=== PATIENT | male | born 1960 | race Caucasian/White ===

== ENCOUNTER → 2020-03-28 12:04 | Outpatient (BNVA) | payer OTHER, SELFPAY | PROVIDERS: Family Provider Family Medicine; PCP Family Medicine; Visit Provider Family Medicine | DX: M79.674 Pain in right toe(s) (principal); I10 Essential (primary) hypertension; M25.511 Pain in right shoulder; G89.29 Other chronic pain | CPT/HCPCS: 84550 ==

== ENCOUNTER → 2020-06-20 11:27 | Outpatient (BNVA) | payer OTHER, SELFPAY | PROVIDERS: Family Provider Family Medicine; PCP Family Medicine; Visit Provider Family Medicine | DX: G89.29 Other chronic pain (principal); M25.511 Pain in right shoulder; Z23 Encounter for immunization | CPT/HCPCS: 73030 ==

== ENCOUNTER 2020-07-10 12:23 | Outpatient (RCR) | payer OTHER, SELFPAY | END 2020-08-09 23:59 | disposition home or self-care (01) | LOC: SPT 12:23 | PROVIDERS: PCP Family Medicine; Referring Provider Family Medicine; Visit Provider Family Medicine | DX: M25.511 Pain in right shoulder (principal); G89.29 Other chronic pain | CPT/HCPCS: 97110; 97161 ==

== ENCOUNTER → 2020-07-19 11:49 | Outpatient (BNVA) | payer OTHER, SELFPAY | PROVIDERS: PCP Family Medicine; Visit Provider Family Medicine | DX: I10 Essential (primary) hypertension (principal) | CPT/HCPCS: 80053; 80061; 82043; 85025 ==

== ENCOUNTER → 2020-08-21 15:35 | Outpatient (BNVA) | payer OTHER, SELFPAY | PROVIDERS: PCP Family Medicine; Visit Provider Family Medicine | DX: E78.5 Hyperlipidemia, unspecified (principal) | CPT/HCPCS: 80053 ==

== ENCOUNTER 2020-12-24 08:14 | Outpatient (CLI) | payer OTHER, SELFPAY ==
--- NOTE | 2020-12-24 08:22 | NMCV_ITS ---
NM stuart perf SPECT r/s* [id number] Bhargav Holm Age: 60 Gender: M : 1960 Exam Date: 12/24/2020 09:28 Ordering Phys: Jane Reed DO Technologist: THOMAS Verdugo Exam Location: [facility] Indications: LIGHTHEADEDNESS STRESS TEST Please see separate stress test report in [facility] for full findings IMAGE PROTOCOL Rest/Stress 1 Exercise Day Radiopharmaceutical Dose (mCi) Administration Site Administered by Rest: Tc-99m 10.9 IV THOMAS Mirza Sestamibi Stress:Tc-99m 32.7 IV THOMAS Verdugo Sestamibaljeet Rest: 24-Dec-2020 60 Discovery 630 Stress: 24-Dec-2020 30 Discovery 630 Images obtained in supine and prone position. Radiopharmaceutical was injected at 85 % maximum heart rate. SPECT RESULTS Technical Quality: Excellent Raw Data Analysis: Normal Image Corrections: No attenuation or motion correction applied Summed Stress Score: 0 Summed Rest Score: 5 Summed Difference Score: 0 PERFUSION FINDINGS Small to moderate area of decreased tracer uptake in the inferolateral region fusion with reverse redistribution FUNCTIONAL RESULTS (calculated via Gated SPECT) Stress Image LV EF (%): 63 Stress EDV (mL):130 TID: 0.88 Stress ESV (mL):48 FUNCTIONAL FINDINGS: Segmental wall motion analysis revealing no gross wall motion normalities #1. IMPRESSIONS 1. Myocardial perfusion imaging revealing small to moderate area of reversible distribution in the inferolateral region, suggestive of collateral circulation in this region versus attenuation artifact 2. Normal LV ejection fraction of 63%. 3. LV wall motion analysis revealing no gross wall motion normalities. 4. Slightly elevated LV volume. No significant coronary ischemia, based on the above findings Dr Angelo Simon MD [facility] (Electronically Signed) Final Date: 24 Dec 2020 13:06 S
[2020-12-24 09:16] VITALS: BMI 32.5
--- NOTE | 2020-12-24 10:15 | ECG_ITS ---
[facility] Test Date: 2020-12-24 Pat Name: Bhargav Holm Department: Room: Gender: Male Health Service Coordinator: : 1960 Requested By: Jane Reed Order Number: [id number] Shaver MD: Angelo Simon M.D. Interpretive Statements NAME OF STUDY: EXERCISE SESTAMIBI STRESS TEST INDICATION: Lightheadedness, PROCEDURE: The baseline electrocardiogram showed [normal sinus rhythm with some nonspecific ST-T changes and incomplete right bundle branch block pattern. At the baseline, the patient's blood pressure was 151/95 mm Hg with a heart rate of 76. The patient exercised for 7 minutes and 15 seconds on a standard Ishan protocol. Patient attained a maximum heart rate of 140 beats per minute( 86 % of the maximum predicted heart rate) with a blood pressure at the peak exercise of 189/101 mm Hg. The EKG at the peak exercise revealed [address] depressions in lead V4 and V5 . Patient was complaining of shortness of breath with exertion. Patient did not have any chest pain or any significant arrhythmis with the exercise. Sestamibi was injected 1 minute prior to the peak exercise During the recovery phase, there were no new changes. The blood pressure went up to 228/119 soon after the recovery Blood pressure at the end of the recovery phase was 176/111 mm Hg with a heart rate of 84 per minute. CONCLUSION: 1. Abnormal EKG response to treadmill exercise, suggestive of ischemia in the distribution of the left anterior descending artery. 2. No exercise-induced chest pain or cardiac arrhythmia. Hypertensive response to exercise 3. Fair exercise tolerance, attained a maximum of 10.2 METs 4. Sestamibi/Sestamibi perfusion results pending; see separate report. Electronically Signed On 01-10-2021 17:23:41 CDT by Angelo Simon M.D. [email or web address]
[2020-12-24 10:27] VITALS: BP 176/99; PULSE 83
== END 2020-12-24 08:15 | disposition home or self-care (01) ==
PROVIDERS: PCP Family Medicine; Visit Provider Family Medicine
DX: R42 Dizziness and giddiness (principal); R63.1 Polydipsia
CPT/HCPCS: 78452; 80053; 81003; 83036; 83935; 84443; 93017; A9500

== ENCOUNTER 2021-01-10 08:35 | Outpatient (CLI) | payer OTHER, SELFPAY ==
--- NOTE | 2021-01-10 08:45 | US_ITS ---
WS: [id number] ULTRASOUND RENAL TECHNIQUE: Ultrasound examination of both kidneys. CLINICAL INFORMATION: EXCESSIVE THIRST AND HYPONATREMIA COMPARISON: None. FINDINGS: Several bilateral simple renal cysts largest in the right measures 2.5 x 3.0 x 3.8 cm. Larg est in the left measures 1.9 x 2.2 x 2.1 CM. Approximately 4-5 renal cysts in total. RIGHT: Right kidney is normal in size and appearance. Echogenicity: Normal. Cortical thickness: 1.8 cm; Normal. Hydronephrosis: None. Perinephric fluid: None. Right kidney measures: 12.8 cm x 8.5 cm x 4.7 cm. LEFT: Left kidney is normal in size and appearance. Echogenicity: Normal. Cortical thickness: 2.0 cm; Normal. Hydronephrosis: None. Perinephric fluid: None. Left kidney measures: 12.1 cm x 6.5 cm x 4.7 cm. Normal visualized aorta.Prevoid bladder volume 555 cc. Post void bladder volume 70 cc. Bladder otherw ise appears normal. Prostate measures 3.6 x 5.0 x 3.8 cm US/US renal BI with PV bladder IMPRESSION: 1. No hydronephrosis in either kidney. 2. Multiple bilateral simple renal cysts. 3. Prevoid bladder volume 555 cc. Post void bladder volume 70 cc. 4. Prostate measures 3.6 x 5.0 x 3.8 cm
== END 2021-01-10 08:36 | disposition home or self-care (01) ==
LOC: RAD 08:37
PROVIDERS: PCP Family Medicine; Visit Provider Family Medicine
DX: R63.1 Polydipsia (principal); E87.1 Hypo-osmolality and hyponatremia; Q61.02 Congenital multiple renal cysts
CPT/HCPCS: 76770; 76857

== ENCOUNTER → 2021-03-06 11:22 | Outpatient (BNVA) | payer OTHER, SELFPAY | PROVIDERS: PCP Family Medicine; Referring Provider Internal Medicine Cardiovascular Disease; Visit Provider Internal Medicine Cardiovascular Disease | DX: Z01.818 Encounter for other preprocedural examination (principal); R94.39 Abnormal result of other cardiovascular function study; Z20.822 Contact with and (suspected) exposure to COVID-19 | CPT/HCPCS: 80048; 85025; 85610; 87635 ==

== ENCOUNTER 2021-03-12 08:47 | Day surgery (SDC) | payer OTHER, SELFPAY ==
[2021-03-11 11:38] LABS: Arterial Blood Gas Hematocrit 38.1 % (42-52); Blood Gas Operator Identificat AMH; Blood Gas Sample Type Venous; Carboxyhemoglobin 1.2 %THgb (0.4-20.1); HGB O2 Sat 57.8 % (95-100); Methemoglobin 0.8 % (0.4-1.5); Total Hemoglobin 12.4 g/dL (14-18)
[2021-03-11 11:40] LABS: Alveolar-Arterial Oxygen Gradi 8.2 mmHg (5-10); Arterial Blood Gas Hematocrit 27.4 % (42-52); Blood Gas Operator Identificat AMH; Blood Gas Sample Type Venous; Carboxyhemoglobin 1.2 %THgb (0.4-20.1); HGB O2 Sat 57.7 % (95-100); Methemoglobin 0.8 % (0.4-1.5); Total Hemoglobin 8.9 g/dL (14-18)
[2021-03-11 11:42] LABS: Arterial Blood Gas Hematocrit 22.9 % (42-52); Blood Gas Operator Identificat AMH; Blood Gas Sample Type Venous; Carboxyhemoglobin 1.3 %THgb (0.4-20.1); HGB O2 Sat 58.3 % (95-100); Methemoglobin 0.8 % (0.4-1.5); Total Hemoglobin 7.5 g/dL (14-18)
[2021-03-11 11:44] LABS: Alveolar-Arterial Oxygen Gradi 5.4 mmHg (5-10); Arterial Blood Gas Hematocrit 36.9 % (42-52); Blood Gas Operator Identificat AMH; Blood Gas Sample Site Not specified; Blood Gas Sample Type Arterial; Carboxyhemoglobin 1.2 %THgb (0.4-20.1); Methemoglobin 0.6 % (0.4-1.5)
[2021-03-11 14:29] LABS: Oxygen Device RA
[2021-03-12] VITALS (9 sets, daily range): BP systolic 114–129; BP diastolic 72–98; PULSE 51–63; RESP 6–23; TEMP 36.9; O2SAT 96–98; BMI 32.5
--- NOTE | 2021-03-12 09:00 | XACV_ITS ---
Ht: 183 cm Wt: 109 kg BSA: 2.38 m2 Gender: Male : 1960 Any Known Allergies: No known allergies Exam Priority: Routine Indication(s): - Abnormal nuclear perfusion test Procedure(s): Procedure Description: Diagnostic procedure Procedure Description: Left Heart Catheterization Procedure Description: Left ventriculography Procedure Description: Coronary Angiography Diagnostic Cath Status: Elective Diagnostic Findings * Left Main has no disease. * Circumflex has no disease. * Right Coronary Artery has no disease. * Proximal Left Anterior Descending: severe 90% stenosis, ADRIÁN: 3 flow. * Ramus: severe 90% stenosis, ADRIÁN: 3 flow. * Coronary angiography shows right dominance. Conclusions 1. There is severe coronary artery disease with one vessel disease. 2. All smiley are normal. 3. Normal left ventricular systolic function. Ejection fraction of 65%. 4. Normal left ventricle function no significant gradient across the aortic valve noted. 5. Patient underwent worsening of chest pain along with shortness of breath suspicious for unstable angina and abnormal stress test. He was noted to have a highly calcified proximal long 90 but LAD and eccentric significant 90% ramus intermedius. Left circumflex has proximal 40% eccentric lesion which may not be significant. RCA is a dominant vessel without any significant disease. Since patient has highly calcified proximal long LAD lesion along with moderate size and caliber ramus intermedius which also noted to have proximal highly calcified eccentric significant stenotic lesion it was recommended that patient should be assessed for CABG. Patient was offered CABG at [facility] but he would like to go to [facility].. Recommendations * 1-Usual post-cath care2-Statin with LDL goal of 70 mg/dl, aspirin 81 mg p.o. daily for life long 3-CT surgery consults for CABG4-Optimal medical management for MI5-Follow up with Dr. Billings in four weeks and establish care with primary care physician. Diagnostic RX Recommendation: CABG Ventriculography Ejection Fraction: 65.0 % Left Ventriculography Findings: * Normal left ventricle function no significant gradient across the aortic valve noted. Pressures Phase:Rest AO : 124 / 30 ( 30 ) @ 9:52:00 AM 117 / 87 ( 103 ) @ 9:52:00 AM 119 / 21 ( 50 ) @ 10:05:00 AM LV : 128 / 0 / 18 @ 10:03:00 AM 125 / 0 / 17 @ 10:03:00 AM 186 / 27 / 120 @ 10:04:00 AM 116 / 3 / 18 @ 10:04:00 AM Clinical Evaluation EBL: 5mL-10mL Procedural Details Procedure Consent Obtained. Admit Source: Out Patient. Current Diagnosis : Chest Pain. Pre-Procedure Time Out. Identified patient by full name and date of as verbalized by the patient/guarantor. Does the consent match the physician's order: Yes. Accurate & Complete Informed Consent: Yes. Inpatient/Outpatient History & Physical on Chart: Yes. If H&P is completed, is and addenduem needed: No; If yes, is the addendum complete: N/A. Visualize and Verify Site with Patient/Guarantor: N/A. Relevant Radiology Images available: N/A. Pre-op teaching completed and patient verbalized understanding. The risks, benefits, and alternatives of sedation and/or procedure were discussed by physician. The patient agrees to continue. Procedure started. [facility] Clinical Fraility Score: 3: Managing Well. 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 Chest Pain Symptom Assessment: Typical Angina Symptoms. Cardiovascular Instability: No. Correct patient, site and procedure confirmed by cath team. Current diagnosis: Chest Pain, Shortness of Breath, Abnormal Stress Test. PERRLA. Strong, equal hand svp research & ebusiness operations bilaterally. Lungs clear x 5 lobes. IV Site on Arrival: 20 gauge in the left anticubital. IV Fluids: 0.9% NaCl at KVO. 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 Pre Procedural Pulses: bilateral radial was 3+. Pre Procedural Pulses: bilateral dorsalis pedis was 3+. Pre Procedural Pulses: bilateral posterior tibial was 3+. Oxygen started at 3liters/min via nasal canula. right groin was prepped with chloroprep then draped in the usual sterile fashion. right radial was prepped with chloroprep then draped in the usual sterile fashion. Physician notified. Baseline sample Acquired. HR: 56 BPM. Baseline sample Acquired. HR: 55 BPM. Baseline sample Acquired. HR: 55 BPM. Physician arrived. Physician scrubbed in. Immediate Pre-Procedure Time Out. Correct Patient: Yes; Correct Procedure: Yes; Correct Site: Yes; Correct Patient Position: Yes; Correct Supplies: Yes; Dried Flammable Prep: Yes; Blood Products Available: N/A;. Lidocaine 1% infiltrated to the right radial. Arterial access obtained. A 5 [place] TIG catheter in over wire. Catheter seated in the LCS. Multiple views taken of left coronary artery. Catheter redirected to the RCA. Multiple views taken of right coronary artery. Side port of sheath attached to Normal Saline flush at KVO to maintain patency. Physician review of films. Catheter removed over the exchange wire. Equipment: 6F - Radial. Cardiac Cath Pack. ACIST Manifold Kit Model BT 2000. Heparinized Saline (2 units/mL), 1000 mL bag. A 5 [place] Angled Pig catheter in over wire. EDP Sample taken: LV 128/-1,18; HR: 56 BPM; SpO2: 99%. LV gram performed in GU @ 10 mL/second for a total of 30 mL. Patient EF: Normal. EDP Sample taken: LV 186/27,120; HR: 60 BPM; SpO2: 99%. EDP Sample taken: LV 116/3,18; HR: 59 BPM; SpO2: 99%. Pullback taken: LV Off; AO Off; Mean: , Peak to Peak: , SEP: ; HR: 59 BPM; SpO2: 99%. Physician scrubbed out. A TR Band was successful obtaining hemostatsis at the Right Radial artery insertion site. TR band placed. Hemostasis obtained. Post Procedure: Pulses reassessed and unchanged. PERRLA. Strong, equal hand svp research & ebusiness operations bilaterally. No VTE prophylaxis required. Medication's Wasted: Lidocaine 1% = 14 ml. Medication's Wasted: Nitro = 49.8 mg. Medication's Wasted: Heparin = 1000 units. Total IV fluids: 50 mL. Fluoro: 3:06. Contrast type used: Omnipaque 300 mgI/mL, 500 mL bottle. [id number] ml. Post-op diagnosis: 2 vessel obstuctive CAD. Complications: None. Estimated blood loss: 5mL-10mL. Family updated by MD. Procedure completed. Patient transferred by wheelchair to CPRU. Vital chart was stopped. Vital chart was stopped. Access Site Site: Right Radial artery Sheath Size: 5 Fr Hemostasis Method: TR Band Hemostasis Success: Successful Procedure Medications Start: 10:38 AM Stop: 10:38 AM Medication: Versed Amount: 1 mg Route: I.V. Start: 10:38 AM Stop: 10:38 AM Medication: Fentanyl Amount: 50 mcg Route: I.V. Start: 10:41 AM Stop: 10:41 AM Medication: Versed Amount: 1 mg Route: I.V. Start: 10:41 AM Stop: 10:41 AM Medication: Fentanyl Amount: 50 mcg Route: I.V. Start: 10:45 AM Stop: 10:45 AM Medication: Nitrogylcerin Amount: 200 mcg Route: I.A. Start: 10:47 AM Stop: 10:47 AM Medication: Heparin Amount: 5000 units Route: I.V. I, the attending physician, have reviewed and verified all procedure medications. Yes, all medications given per verbal order History/Risk Factors Hypertension: No Dyslipidemia: No Peripheral Arterial Disease (PAD): No Myocardial Infarction (AL): No Obesity: No Renal Disease: No Tobacco Use: Former Prior Interventions PCI: No CABG: No Valve Surgery: No Report Signatures Finalized by Winter Billings MD on 03/14/2021 07:42 PM
--- NOTE | 2021-03-12 10:11 | W.PM.OPSUD ---
Surgery/Procedure H&P Update DATE OF PROCEDURE: March 12, 2021 DATE H&P PERFORMED: 02/21/21 H&P UPDATE INFORMATION: I have reviewed H&P completed within last 30 days, I have examined patient prior to procedure and No changes to prior documentation PREOP DIAGNOSIS: Abnormal stress test, chest pain, shortness of breath PLANNED PROCEDURE: Operation Date: 03/12/21 10:00 Proposed Procedures p Left Cardiac Catheterization 68368 R94.39(Left) - Winter Billings MD PATIENT REASSESSED PRIOR TO SEDATION, WITH NO CHANGE NOTED: Yes PHYSICAL EXAM: alert, oriented x 3 and clear to auscultation bilaterally AIRWAY EVAL/ANESTHESIA PLAN: ASA II, Risks, benefits & alternatives of sedation and/or procedure discussed and Patient agrees to continue as planned
--- NOTE | 2021-03-12 11:00 | PC.NURSE ---
received pt from a diagnostic only [facility] from woods laborer. pt complains of no pain. tr band in place on right wrist with palpable distal pulse. no bruising or bleeding noted. pt alert and oriented x3. pt educated on restrictions for right wrist. pt placed on vital machine to be monitored per protocol.
== END 2021-03-12 13:51 | disposition home or self-care (01) ==
PROVIDERS: PCP Family Medicine; Visit Provider Internal Medicine Cardiovascular Disease
DX: R94.39 Abnormal result of other cardiovascular function study (principal); I25.10 Atherosclerotic heart disease of native coronary artery without angina pectoris; G47.33 Obstructive sleep apnea (adult) (pediatric); Z87.891 Personal history of nicotine dependence
CPT/HCPCS: 36415; 82810; 93452; C1769; C1887; C1894; J1644; J2250; J3010; J3490; J7030; Q0163; Q9967

== ENCOUNTER 2021-03-22 07:42 | Outpatient (CLI) | payer OTHER, SELFPAY ==
--- NOTE | 2021-03-22 08:00 | USCV_ITS ---
Bhargav Holm Age: 60 Gender: M : 1960 Exam Date: 03/22/2021 07:57 Ordering Phys: Winter Billings MD ([email or web address]) Technologist: Shelia Treadwell Exam Location: [facility] Indication: abnormal result other CV function BP: 1 / HR: 65 Rhythm: Sinus Technical Quality: Adequate MEASUREMENTS (Male / Female) Normal Values 2D ECHO LV Diastolic Diameter PLAX 5.1 cm 4.2 - 5.9 / 3.9 - 5.3 cm LV Systolic Diameter PLAX 3.4 cm IVS Diastolic Thickness 1.1 cm 0.6 - 1.0 / 0.6 - 0.9 cm IVS Systolic Thickness 1.7 cm LVPW Diastolic Thickness 0.8 cm 0.6 - 1.0 / 0.6 - 0.9 cm LVPW Systolic Thickness 1.8 cm LVOT Diameter 2.2 cm LV Ejection Fraction 2D Teich 63.3 % LV Ejection Fraction MOD 2C 78.8 % LV Ejection Fraction 2C AL 81.0 % LA Diameter 4.9 cm LA Width 3.3 cm LA Height 5.6 cm RA Width 1.9 cm RA Height 5.4 cm Aorta at Sinotubular Diameter 4.0 cm DOPPLER AV Peak Velocity 135.0 cm/s LVOT Peak Velocity 109.0 cm/s AV Area Cont Eq vti 3.2 cm squared AV Area Cont Eq pk 3.2 cm squared MV Peak Velocity 81.0 cm/s MV Area PHT 3.5 cm squared Mitral E to A Ratio 0.9 MV E' Velocity 36.0 cm/s Mitral E to MV E' Ratio 8.5 Mitral E to LV E' Lateral Ratio 7.4 Mitral E to LV E' Septal Ratio 9.9 TR Peak Velocity 220.3 cm/s TR Peak Gradient 19.4 mmHg TR Mean Velocity 166.9 cm/s TR Mean Gradient 12.0 mmHg TR Velocity Time Integral 61.9 cm Right Atrial Pressure 3.0 mmHg Pulmonary Artery Systolic Pressu 22.4 mmHg PV Peak Velocity 86.0 cm/s RV Acceleration Time 0.1 s RV Ejection Time 0.3 s RV AcT/ET 0.4 FINDINGS Left Ventricle Normal left ventricular cavity size. Normal left ventricular systolic function. No regional wall motion abnormalities. Left ventricular ejection fraction is estimated at 60 %. Grade I/IV diastolic dysfunction (abnormal relaxation filling pattern), normal to mildly elevated filling pressures. Right Ventricle The right ventricle is normal in size and function. Right Atrium The right atrium is normal in size. Left Atrium The left atrium is normal in size. Mitral Valve Mildly thickened mitral valve. No mitral valve stenosis. Mild mitral valve regurgitation. Aortic Valve Moderate aortic valve calcification. No aortic valve stenosis. Mild aortic valve regurgitation. Tricuspid Valve Trace to mild tricuspid valve regurgitation. Pulmonic Valve Structurally normal pulmonic valve without significant stenosis. There is no pulmonic regurgitation. Pericardium Normal pericardium without effusion. Aorta Normal ascending aorta dimension. CONCLUSIONS 1-Normal left ventricular cavity size. Normal left ventricular systolic function. No regional wall motion abnormalities. Left ventricular ejection fraction is estimated at 60 %. Grade I/IV diastolic dysfunction (abnormal relaxation filling pattern), normal to mildly elevated filling pressures. 2-Moderate aortic valve calcification. No aortic valve stenosis. Mild aortic valve regurgitation. 3-Mildly thickened mitral valve. No mitral valve stenosis. Mild mitral valve regurgitation. 4-Trace to mild tricuspid valve regurgitation. 5-There is no pericardial effusion. 6-Pulmonary artery systolic pressure is within normal limits. 7-Right atrial pressure is around 5 mm of mercury. 8-There are no prior echocardiogram studies to compare. Winter Billings MD (Electronically Signed) Final Date: 22 March 2021 18:59 S
== END 2021-03-22 07:43 | disposition home or self-care (01) ==
PROVIDERS: PCP Family Medicine; Visit Provider Internal Medicine Cardiovascular Disease
DX: R94.39 Abnormal result of other cardiovascular function study (principal); R06.02 Shortness of breath; R07.9 Chest pain, unspecified; I08.3 Combined rheumatic disorders of mitral, aortic and tricuspid valves
CPT/HCPCS: 93306

== ENCOUNTER 2021-04-01 10:31 | Outpatient (CLI) | payer OTHER, SELFPAY ==
[2021-04-03 15:56] LABS: Coronavirus Test Green County Not Detected
== END 2021-04-01 10:32 | disposition home or self-care (01) ==
PROVIDERS: PCP Family Medicine; Visit Provider Family Medicine
DX: Z20.828 Contact with and (suspected) exposure to other viral communicable diseases (principal); Z01.818 Encounter for other preprocedural examination
CPT/HCPCS: 87635

== ENCOUNTER 2021-04-19 09:12 | Outpatient (RCR) | payer OTHER, SELFPAY | END 2021-05-09 23:59 | disposition home or self-care (01) | LOC: CR 09:12 | PROVIDERS: PCP Family Medicine; Referring Provider Internal Medicine Cardiovascular Disease; Visit Provider Internal Medicine Cardiovascular Disease | DX: Z95.1 Presence of aortocoronary bypass graft (principal) | CPT/HCPCS: 93798 ==

== ENCOUNTER → 2021-05-06 08:13 | Outpatient (BNVA) | payer OTHER, SELFPAY | PROVIDERS: PCP Family Medicine; Visit Provider Family Medicine | DX: E78.5 Hyperlipidemia, unspecified (principal) | CPT/HCPCS: 80053; 80061 ==

== ENCOUNTER 2021-05-10 08:14 | Outpatient (RCR) | payer OTHER, SELFPAY | END 2021-06-09 23:59 | disposition home or self-care (01) | LOC: CR 08:14 | PROVIDERS: PCP Family Medicine; Referring Provider Internal Medicine Cardiovascular Disease; Visit Provider Internal Medicine Cardiovascular Disease | DX: Z95.1 Presence of aortocoronary bypass graft (principal) | CPT/HCPCS: 93798 ==

== ENCOUNTER 2021-06-11 11:33 | Outpatient (RCR) | payer OTHER, SELFPAY | END 2021-07-09 23:59 | disposition home or self-care (01) | LOC: CR 11:33 | PROVIDERS: PCP Family Medicine; Referring Provider Internal Medicine Cardiovascular Disease; Visit Provider Internal Medicine Cardiovascular Disease | DX: Z95.1 Presence of aortocoronary bypass graft (principal) | CPT/HCPCS: 93798 ==

== ENCOUNTER 2021-06-28 10:09 | Outpatient (CLI) | payer OTHER, SELFPAY ==
--- NOTE | 2021-06-28 10:25 | XR_ITS ---
WS: [id number] Exam: XR knee RT 1-2V [id number] Date/Time of Exam: 06/28/2021 10:25 AM Reason For Exam: chronic Rt knee pain No fracture or dislocation noted. Articular relationships are intact. No joint effusion. XR/XR knee RT 1-2V [id number] Impression: Normal right knee Kellgren-Juanjose Classification: 0
== END 2021-06-28 10:10 | disposition home or self-care (01) ==
PROVIDERS: PCP Family Medicine; Visit Provider Family Medicine Adult Medicine
DX: M25.561 Pain in right knee (principal); G89.29 Other chronic pain
CPT/HCPCS: 73560

== ENCOUNTER 2021-07-10 09:42 | Outpatient (RCR) | payer OTHER, SELFPAY | END 2021-08-09 23:59 | disposition home or self-care (01) | LOC: CR 09:42 | PROVIDERS: PCP Family Medicine; Referring Provider Internal Medicine Cardiovascular Disease; Visit Provider Internal Medicine Cardiovascular Disease | DX: Z95.1 Presence of aortocoronary bypass graft (principal) | CPT/HCPCS: 93798 ==

== ENCOUNTER → 2021-07-12 15:00 | Outpatient (BNVA) | payer OTHER, SELFPAY | PROVIDERS: PCP Family Medicine; Visit Provider Family Medicine | DX: R35.1 Nocturia (principal) | CPT/HCPCS: 84153 ==

== ENCOUNTER 2021-07-23 14:33 | Outpatient (RCR) | payer OTHER, SELFPAY | END 2021-08-09 23:59 | disposition home or self-care (01) | LOC: SPT 14:33 | PROVIDERS: PCP Family Medicine; Referring Provider Family Medicine; Visit Provider Family Medicine | DX: M25.561 Pain in right knee (principal) | CPT/HCPCS: 97110; 97162 ==

== ENCOUNTER 2021-08-10 06:00 | Outpatient (RCR) | payer OTHER, SELFPAY | END 2021-09-09 23:59 | disposition home or self-care (01) | LOC: SPT 06:00 | PROVIDERS: PCP Family Medicine; Referring Provider Family Medicine; Visit Provider Family Medicine | DX: M25.561 Pain in right knee (principal) | CPT/HCPCS: 97110 ==

== ENCOUNTER 2021-09-10 06:00 | Outpatient (RCR) | payer OTHER, SELFPAY | END 2021-10-07 23:59 | disposition home or self-care (01) | LOC: SPT 06:00 | PROVIDERS: PCP Family Medicine; Referring Provider Family Medicine; Visit Provider Family Medicine | DX: M25.561 Pain in right knee (principal) | CPT/HCPCS: 97110 ==

== ENCOUNTER → 2021-09-27 11:44 | Outpatient (BNVA) | payer OTHER, SELFPAY | PROVIDERS: PCP Family Medicine; Referring Provider Family Medicine; Visit Provider Surgery | DX: R13.10 Dysphagia, unspecified (principal); I25.10 Atherosclerotic heart disease of native coronary artery without angina pectoris; Z20.822 Contact with and (suspected) exposure to COVID-19 | CPT/HCPCS: 87635 ==

== ENCOUNTER 2021-10-04 06:29 | Day surgery (SDC) | payer OTHER, SELFPAY ==
[2021-10-02 12:18] VITALS: BMI 33.9
--- NOTE | 2021-10-04 07:05 | P.ANESASSM_ITS ---
Pre-Anesthetic Assessment Height/Weight: Height 1.83 m Weight 113.398 kg Preop Diagnosis: upper gi symptoms Operation Date: 10/04/21 08:00 Proposed Procedures p EGD Dilation W/ Balloon 48392/r13.10(Not Applicable) - Prince Sylvester MD Familial anesthetic complications: None Was Beta Timoteo taken within 24 hours: Yes Was Clonidine taken within 24 hours: N/A Last intake: > 8 hrs Social No alcohol and No tobacco Exam alert, oriented x 3, clear to auscultation bilaterally and regular rate & rhythm Airway Mallampati: Class III Dentition: full Pulmonary Sleep Apnea CV/HEM Coronary Artery Disease (cabg in march) and Hypertension None reported Hepatic None reported GI Gastroesophageal Reflux Disease Metabolic None reported Musc/skel None reported Neuropsych None reported Anesthetic Plan ASA status: 3 Anesthesia: MAC Risk of > 500 ml blood loss (7ml/kg in children): No Medications/Allergies Home Medications Medication Instructions Recorded Confirmed Last Taken Type aspirin 81 mg tablet,delayed 81 mg PO DAILY #90 tab 02/21/21 10/02/21 10/02/21 Rx release (Adult Low Dose Aspirin) famotidine 20 mg tablet 20 mg PO DAILY 02/21/21 10/02/21 03/12/21 06:30 History multivitamin 1 tab PO DAILY 02/21/21 10/02/21 03/12/21 06:30 History atorvastatin 80 mg tablet 80 mg PO DAILY 90 Days #90 tab 05/07/21 10/02/21 Unknown Rx metoprolol tartrate 25 mg tablet 25 mg PO BID tab 06/25/21 10/02/21 Unknown History tramadol 50 mg tablet 50 mg PO Q8H PRN 15 Days #30 tab 06/28/21 10/02/21 Unknown Rx clopidogrel 75 mg tablet 75 mg PO DAILY #90 tab 07/25/21 10/02/21 09/29/21 Rx tamsulosin 0.4 mg capsule 0.4 mg PO BID 90 Days #180 cap 09/17/21 10/02/21 Unknown Rx Allergies Allergy/AdvReac Type Severity Reaction Status Date / Time No Known Allergies Allergy Verified 09/27/21 11:09 [facility] Anesthesia Medical History BPH (benign prostatic hyperplasia) CAD (coronary artery disease) Dyslipidemia GERD (gastroesophageal reflux disease) Hypertension PUSHPA (obstructive sleep apnea) Surgical History History of ankle surgery History of appendectomy History of detached retina repair History of tympanostomy tube placement Status post aorto-coronary artery bypass graft Status post colonoscopy Family History Mother Stroke Brother Stroke Myocardial infarction Family/Other Hypertension Father Myocardial infarction Social History Smoking and tobacco status: never smoked Quit status (tobacco): has quit using tobacco Alcohol intake: never Data Anesthesia Cardiac Studies: Echocardiogram 03/22/21 Sestamibi Stress Test (Cardiology) 12/24/20
[2021-10-04 07:21] VITALS: BP 135/91; PULSE 66; RESP 20; TEMP 36.4; O2SAT 96
[2021-10-04] MEDS: sodium chloride 0.9% 1,000 ML 30 ML IV (07:30)
--- NOTE | 2021-10-04 07:44 | P.HP_ITS ---
Same Day Surgery H&P Indication for Procedure/HPI DATE OF PROCEDURE: October 04, 2021 CHIEF COMPLAINT/INDICATIONFOR SURGICAL PROCEDURE: dysphagia PREOP DIAGNOSIS: upper gi symptoms PLANNED PROCEDURE: Operation Date: 10/04/21 08:00 Proposed Procedures p EGD Dilation W/ Balloon 33767/r13.10(Not Applicable) - Prince Sylvester MD Medications/Allergies* Home Medications Medication Instructions Recorded Confirmed Type famotidine 20 mg tablet 20 mg PO DAILY 02/21/21 10/02/21 History multivitamin 1 tab PO DAILY 02/21/21 10/02/21 History metoprolol tartrate 25 mg tablet 25 mg PO BID tab 06/25/21 10/02/21 History Allergies/Adverse Reactions Allergy/AdvReac Type Severity Reaction Status Date / Time No Known Allergies Allergy Verified 09/27/21 11:09 Current Medications: Generic Name Dose Route Start Last Admin Trade Name Freq PRN Reason Stop Dose Admin Sodium Chloride 1,000 mls @ 30 mls/hr 10/04/21 07:00 10/04/21 07:30 Sodium Chloride 0.9% IV 10/05/21 06:59 30 mls/hr .Q24H ASH Administration Pertinent History/Comorbid Conditions* Medical History (Updated 09/27/21 @ 11:16 by Prince Sylvester MD) BPH (benign prostatic hyperplasia) CAD (coronary artery disease) Dyslipidemia GERD (gastroesophageal reflux disease) Hypertension PUSHPA (obstructive sleep apnea) Surgical History (Updated 09/27/21 @ 11:16 by Prince Sylvester MD) History of ankle surgery History of appendectomy History of detached retina repair History of tympanostomy tube placement Status post aorto-coronary artery bypass graft Status post colonoscopy Family History (Updated 02/21/21 @ 13:50 by Sherri Godinez RN) Myocardial infarction Brother Father Hypertension Family/Other Stroke Mother Brother Social History Smoking and tobacco status: never smoked Quit status (tobacco): has quit using tobacco Alcohol intake: never Pertinent Exam Findings alert, oriented x 3 and regular rate & rhythm Recommendations Surgery/Procedure today Coding Level of Care Code Acute Certified Family Mediator for Carmen Arnold
[2021-10-04 08:09] VITALS: BP 101/68; PULSE 62; RESP 16; TEMP 36.2; O2SAT 94
[2021-10-04 08:19] VITALS: BP 97/65; PULSE 65; RESP 18; O2SAT 95
--- NOTE | 2021-10-04 12:43 | ANE.PACU2 ---
Inpatient post-anesthesia follow up: Airway intact: Yes Vital signs: Temperature 97.2 F Pulse Rate 65 Respiratory Rate 18 Blood Pressure 97/65 Pulse Oximetry 95 Oxygen Delivery Me thod Room Air Oxygen Flow Rate Fraction of Inspir ed Oxygen Hydration adequate: Yes Nausea and vomiting: No Pain level: 1 Mental status: Baseline
== END 2021-10-04 08:35 | disposition home or self-care (01) ==
PROVIDERS: PCP Family Medicine; Visit Provider Surgery
DX: R13.10 Dysphagia, unspecified (principal); K44.9 Diaphragmatic hernia without obstruction or gangrene; G47.30 Sleep apnea, unspecified; I25.10 Atherosclerotic heart disease of native coronary artery without angina pectoris; Z95.1 Presence of aortocoronary bypass graft; I10 Essential (primary) hypertension; K21.9 Gastro-esophageal reflux disease without esophagitis; Z79.82 Long term (current) use of aspirin; N40.0 Benign prostatic hyperplasia without lower urinary tract symptoms; E78.5 Hyperlipidemia, unspecified; G47.33 Obstructive sleep apnea (adult) (pediatric); Z82.49 Family history of ischemic heart disease and other diseases of the circulatory system; Z82.3 Family history of stroke; Z87.891 Personal history of nicotine dependence
CPT/HCPCS: 43239; 88305; J7030

== ENCOUNTER → 2021-10-23 14:44 | Outpatient (BNVA) | payer OTHER, SELFPAY | PROVIDERS: PCP Family Medicine; Referring Provider Family Medicine; Visit Provider Specialist | DX: M25.561 Pain in right knee (principal); M17.12 Unilateral primary osteoarthritis, left knee | CPT/HCPCS: 73560; 73565 ==

== ENCOUNTER → 2022-01-16 08:24 | Outpatient (BNVA) | payer OTHER, SELFPAY | PROVIDERS: PCP Family Medicine; Visit Provider Family Medicine | DX: M25.561 Pain in right knee (principal); R13.10 Dysphagia, unspecified; I10 Essential (primary) hypertension; E78.5 Hyperlipidemia, unspecified; R21 Rash and other nonspecific skin eruption; R13.19 Other dysphagia | CPT/HCPCS: 80053; 80061; 82043; 85025 ==

== ENCOUNTER → 2022-07-17 08:18 | Outpatient (BNVA) | payer OTHER, SELFPAY | PROVIDERS: PCP Family Medicine; Visit Provider Family Medicine | DX: I10 Essential (primary) hypertension (principal); R13.10 Dysphagia, unspecified; E78.5 Hyperlipidemia, unspecified; R21 Rash and other nonspecific skin eruption | CPT/HCPCS: 80053 ==

== ENCOUNTER 2022-07-31 10:17 | Emergency (ER) | payer OTHER, SELFPAY ==
[2022-07-31 10:36] VITALS: BP 139/80; PULSE 72; RESP 18; TEMP 37.1; O2SAT 96; BMI 35.2
--- NOTE | 2022-07-31 10:46 | ED_ITS ---
HPI - General Adult General: Chief complaint: General Medical Stated complaint: pain in throat Time Seen by Provider: 07/31/22 10:30 Source: patient Mode of arrival: ambulatory History of Present Illness: 61-year-old male presents emergency room with complaint of sore throat difficulty swallowing. In the past he has had esophage al stricture and required dilation. Most recently they considered it but he had quite a bit of esophageal inflammation so they did not perform it at the time I was in September of this year. He is noticing now when he bends over he gets quite a bit of sensation radiating up into his chest that he cannot swallow that things are stuck but he is extends upright the symptoms go away almost immediately. He has not noticed any other things that exacerbate or relieve it he has not had any vomiting or diarrhea last bowel movement was normal no hematochezia melena hematemesis or coffee-ground emesis. Patient does have a history of coronary artery disease with a previous coronary artery bypass graft, he still is on Plavix. This is been getting progressively worse for the last couple of weeks. Onset (ago): week(s) Location: abdomen Severity: moderate Quality: aching Pain Consistency: intermittent Relieving factors: none Exacerbating factors: none Associated symptoms: Deny chest pain, cough, diaphoresis, decreased appetite, dyspnea, malaise, nausea, rash, seizures or vomiting Review of Systems Const: Denies: fever(s), chills, fatigue, malaise or diaphoresis ENMT: Denies: throat pain, ear or mastoid pain, nasal discharge or nasal congestion Card: Denies: chest pain Resp: Denies: dyspnea, productive cough or non-productive cough GI: Denies: abdominal pain, nausea, vomiting, hematemesis, coffee ground emesis, diarrhea, constipation, bloating, hematochezia or melena : Denies: flank pain, dysuria, urinary frequency or urinary urgency Skin/Breast: Denies: rash or pruritus PFSH ED PFSH: Medical History BPH (benign prostatic hyperplasia) CAD (coronary artery disease) Dyslipidemia GERD (gastroesophageal reflux disease) Hypertension PUSHPA (obstructive sleep apnea) Surgical History H/O esophagogastroduodenoscopy (10/04/21) Grade D esopahgitis with schatzki ring, hiatal hernia History of ankle surgery History of appendectomy History of detached retina repair History of tympanostomy tube placement Status post aorto-coronary artery bypass graft Status post colonoscopy Family History Mother Stroke Brother Stroke Myocardial infarction Family/Other Hypertension Father Myocardial infarction Social History Smoking and tobacco status: former smoker Quit status (tobacco): has quit using tobacco Alcohol intake: never Physical Exam Const: COMMON NORMALS: no acute distress GENERAL APPEARANCE: cooperative and comfortable ORIENTATION/CONSCIOUSNESS: Yes awake, Yes oriented to person, Yes oriented to place and Yes oriented to time HENMT: COMMON NORMALS: normocephalic, atraumatic and hearing grossly normal bilaterally HEAD & SCALP: normocephalic and atraumatic Lymph: LYMPHATIC: no lymphadenopathy noted and no lymphedema noted Resp: COMMON NORMALS: normal respiratory effort, No retractions, No use of accessory muscles and clear to auscultation bilaterally AUSCULTATION: clear to auscultation bilaterally Cardio: COMMON NORMALS: regular rate, regular rhythm and No murmurs present (Cardio) RATE: regular rate RHYTHM: regular rhythm GI: COMMON NORMALS: Soft to palpation and No hepatosplenomegaly present AUSCULTATION: Yes normoactive bowel sounds PALPATION: Yes Soft to palpation, No Tenderness to palpation present (GI), No Guarding due to palpation present (GI) and Yes No hepatosplenomegaly present Extremity: COMMON NORMALS: normal to inspection, capillary refill normal, no clubbing, cyanosis or edema, no calf tenderness and no pedal edema Neuro: SENSORIUM/ORIENTATION: Yes oriented to person, Yes oriented to place and Yes oriented to time Skin: COMMON NORMALS: no rashes or lesions noted GENERAL SKIN EXAM: no rashes or lesions noted Course Vital Signs: Vital signs: Vital Signs Temperature 98.7 F 07/31/22 10:36 Pulse Rate 72 07/31/22 10:36 Respiratory Rate 18 07/31/22 10:36 Blood Pressure 139/80 07/31/22 10:36 Pulse Oximetry 96 07/31/22 10:36 Oxygen Delivery Me thod 07/31/22 10:36 MDM - General Adult Medical Decision Making Patient's symptoms are entirely when he bends over. He is having severe reflux from compressing his stomach. We will double up his Protonix. If this does not improve things he is going to probably need to have another EGD. He is not really having signs of an obstruction in his esophagus at this point. Its noncardiac by its description in nature and is very reproducible. If is not seeing improvement follow-up with surgery for possible EGD. Medical Records I reviewed the patient's medical records. Lab Data I reviewed the patient's lab results. 07/31/22 11:00 07/31/22 11:00 Radiology Impressions Chest X-Ray 07/31/22 11:28 IMPRESSION: 1. No acute cardiopulmonary finding. Laboratory Results WBC 5.5 10^3/uL (4.0-10.0) 07/31/22 11:00 RBC 4.78 10^6/uL (4.1-5.3) 07/31/22 11:00 Hgb 15.1 g/dL (11.7-16.6) 07/31/22 11:00 Hct 43.2 % (42.0-52.0) 07/31/22 11:00 MCV 90.4 fl (80-94) 07/31/22 11:00 MCH 31.6 pg (28.0-34.0) 07/31/22 11:00 MCHC 35.0 g/dL (30.0-36.0) 07/31/22 11:00 RDW 12.3 % (12.1-15.1) 07/31/22 11:00 Plt Count 231 10^3/cmm (130-400) 07/31/22 11:00 MPV 8.8 fL (7.4-10.4) 07/31/22 11:00 Neut % (Auto) 52.4 % 07/31/22 11:00 Lymph % (Auto) 34.1 % 07/31/22 11:00 [place] % (Auto) 10.3 % 07/31/22 11:00 Eos % (Auto) 2.6 % 07/31/22 11:00 Baso % (Auto) 0.4 % 07/31/22 11:00 Neut # (Auto) 2.86 10^3/uL (1.8-7.7) 07/31/22 11:00 Lymph # (Auto) 1.9 10^3/uL (0.8-4.8) 07/31/22 11:00 [place] # (Auto) 0.6 10^3/uL (0.2-0.9) 07/31/22 11:00 Eos # (Auto) 0.1 10^3/uL (0.0-0.8) 07/31/22 11:00 Baso # (Auto) 0.0 10^3/uL (0.0-0.1) 07/31/22 11:00 Nucleated RBC % (auto) 0 % 07/31/22 11:00 Nucleated RBCs # 0.0 /100WBC 07/31/22 11:00 Sodium 131 mmol/L (136-145) L 07/31/22 11:00 Potassium 4.4 mmol/L (3.5-5.1) 07/31/22 11:00 Chloride 98 mmol/L (98-107) 07/31/22 11:00 Carbon Dioxide 22 mmol/L (22-29) 07/31/22 11:00 Anion Gap 15.4 (5-19) 07/31/22 11:00 BUN 13 mg/dL (8-23) 07/31/22 11:00 Creatinine 0.7 mg/dL (0.7-1.2) 07/31/22 11:00 GFR Calculation 115.0 mL/min (90-130) 07/31/22 11:00 Glucose 102 mg/dL (65-115) 07/31/22 11:00 Calculated Osmolality 272 mOsm/kg (285-295) L 07/31/22 11:00 Calcium 9.5 mg/dL (8.5-10.5) 07/31/22 11:00 Discharge Plan Discharge Patient Disposition: Home Clinical Impression: Esophagitis, reflux Condition: Stable Prescriptions: New Protonix 40 mg tablet,delayed release (DR/EC) 40 mg PO BID 14 Days Qty: 28 0RF Discontinued pantoprazole [Protonix] 40 mg tablet,delayed release (DR/EC) 40 mg PO DAILY 90 Days Qty: 90 1RF No Action multivitamin Tablet 1 tab PO DAILY aspirin [Adult Low Dose Aspirin] 81 mg tablet,delayed release (DR/EC) 81 mg PO DAILY Qty: 90 3RF metoprolol tartrate 25 mg tablet 25 mg PO BID Qty: 180 1RF fluocinonide 0.05 % cream 1 applic topical BID PRN (Reason: itching) Qty: 30 0RF tamsulosin 0.4 mg capsule 0.4 mg PO BID 90 Days Qty: 180 1RF atorvastatin 80 mg tablet 80 mg PO DAILY clopidogrel 75 mg tablet 75 mg PO DAILY Discharge Orders: Discharge ED (Routine); Ordered 07/31/22 Ordered By: Delroy Carter Referrals: Jane Reed DO [Primary Care Provider] - Discharge Diet: As Directed Discharge Activity: Resume usual activity Patient Instructions: Opioid Safety, Pain Management Activity Restrictions/Additional Instructions: You were seen today for severe reflux symptoms. Recommend you elevate head of the bed increase your Protonix to 40 twice daily avoid bending over. Dietary modifications as discussed, avoid caffeinated beverages carbonated beverages alcoholic beverages spicy foods and citrus foods. You should follow-up with surgery to consider repeat endoscopy labor relations manager will make an appointment for you. Coding Level of Care Code ED Woods Laborer for Chg Fwd Exam Comprehensive
--- NOTE | 2022-07-31 10:49 | ECG_ITS ---
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 Measurements Intervals Check Rate: 67 P: 46 GA: 177 QRS: 20 QRSD: 100 T: 128 QT: 400 QTc: 422 Interpretive Statements SINUS RHYTHM POSSIBLE LEFT ATRIAL ENLARGEMENT [-0.1mV P-WAVE IN V1/V2] INCOMPLETE RIGHT BUNDLE BRANCH BLOCK [90+ ms QRS DURATION, TERMINAL R IN V1/V2, 40+ ms S IN I/aVL/V4/V5/V6] ST DEVIATION AND MODERATE T-WAVE ABNORMALITY, CONSIDER LATERAL ISCHEMIA [-0.1+ mV T-WAVE IN I/aVL/V5/V6] No previous ECG available for comparison Electronically Signed On 07-31-2022 12:56:39 [employer] SERVICES DISPATCHER by Zion Boucher M.D. [id number]
[2022-07-31 11:07] LABS: Basophils % 0.4 %; Eosinophils # 0.1 10^3/uL (0.0-0.8); Eosinophils % 2.6 %; Hematocrit 43.2 % (42.0-52.0); Hemoglobin 15.1 g/dL (11.7-16.6); Lymphocytes # 1.9 10^3/uL (0.8-4.8); Lymphocytes % 34.1 %; Mean Corpuscular Hemoglobin 31.6 pg (28.0-34.0); Mean Corpuscular Volume 90.4 fl (80-94); Mean Platelet Volume 8.8 fL (7.4-10.4); Monocytes # 0.6 10^3/uL (0.2-0.9); Monocytes % 10.3 %; Neutrophils # 2.86 10^3/uL (1.8-7.7); Neutrophils % 52.4 %; Nucleated Red Blood Cells % 0 %; Platelet Count 231 10^3/cmm (130-400); Red Blood Count 4.78 10^6/uL (4.1-5.3); Red Cell Distribution Width 12.3 % (12.1-15.1); White Blood Count 5.5 10^3/uL (4.0-10.0)
[2022-07-31 11:27] LABS: Anion Gap 15.4 (5-19); Blood Urea Nitrogen 13 mg/dL (8-23); Calcium 9.5 mg/dL (8.5-10.5); Carbon Dioxide 22 mmol/L (22-29); Chloride 98 mmol/L (98-107); Creatinine Clr Calc Pharmacy 148.7835; Glucose 102 mg/dL (65-115); Osmolality Calculated 272 mOsm/kg (285-295); Potassium 4.4 mmol/L (3.5-5.1); Sodium 131 mmol/L (136-145)
--- NOTE | 2022-07-31 11:28 | XR_ITS ---
WS: [id number] Exam: XR chest 1V portable [id number] Date/Time of Exam: 07/31/2022 11:31 AM Reason For Exam: dyspnea/cough No priors. The lungs are clear and fully expanded. No pleural effusions. Heart size is top limits normal. The me diastinum is normal in contour. Signs of previous median sternotomy. Regional bony elements are intac t. XR/XR chest 1V portable [id number] IMPRESSION: 1. No acute cardiopulmonary finding.
== END 2022-07-31 12:37 | disposition home or self-care (01) ==
PROVIDERS: Emergency Provider Family Medicine; PCP Family Medicine
DX: K21.00 Gastro-esophageal reflux disease with esophagitis, without bleeding (principal); Z79.82 Long term (current) use of aspirin; Z79.02 Long term (current) use of antithrombotics/antiplatelets; Z87.891 Personal history of nicotine dependence; I25.10 Atherosclerotic heart disease of native coronary artery without angina pectoris; E78.5 Hyperlipidemia, unspecified; I10 Essential (primary) hypertension; Z95.1 Presence of aortocoronary bypass graft
CPT/HCPCS: 71045; 80048; 85025; 93005; 99285

== ENCOUNTER 2022-08-11 13:16 | Outpatient (RCR) | payer SELFPAY | END 2022-09-09 23:59 | disposition home or self-care (01) | LOC: CR 13:16 | PROVIDERS: PCP Family Medicine; Referring Provider Internal Medicine Cardiovascular Disease; Visit Provider Internal Medicine Cardiovascular Disease | DX: I25.10 Atherosclerotic heart disease of native coronary artery without angina pectoris (principal); Z95.1 Presence of aortocoronary bypass graft ==

== ENCOUNTER 2022-09-10 10:17 | Outpatient (RCR) | payer SELFPAY | END 2022-10-07 23:59 | disposition home or self-care (01) | LOC: CR 10:17 | PROVIDERS: PCP Family Medicine; Referring Provider Internal Medicine Cardiovascular Disease; Visit Provider Internal Medicine Cardiovascular Disease | DX: Z95.1 Presence of aortocoronary bypass graft (principal) ==

== ENCOUNTER 2022-10-08 09:26 | Outpatient (RCR) | payer SELFPAY | END 2022-11-07 23:59 | disposition home or self-care (01) | LOC: CR 09:26 | PROVIDERS: PCP Family Medicine; Referring Provider Internal Medicine Cardiovascular Disease; Visit Provider Internal Medicine Cardiovascular Disease | DX: Z95.1 Presence of aortocoronary bypass graft (principal) | CPT/HCPCS: 93798 ==

== ENCOUNTER 2022-11-10 11:13 | Outpatient (RCR) | payer SELFPAY | END 2022-12-07 23:59 | disposition home or self-care (01) | LOC: CR 11:13 | PROVIDERS: PCP Family Medicine; Referring Provider Internal Medicine Cardiovascular Disease; Visit Provider Internal Medicine Cardiovascular Disease | DX: Z95.1 Presence of aortocoronary bypass graft (principal) ==

== ENCOUNTER 2022-11-19 06:04 | Day surgery (SDC) | payer BC, SELFPAY ==
[2022-11-17 09:30] VITALS: BMI 35.2
[2022-11-19 06:26] VITALS: BP 136/81; PULSE 56; RESP 18; TEMP 35.9; O2SAT 97
[2022-11-19] MEDS: sodium chloride 0.9% 1,000 ML 30 ML IV (06:33)
--- NOTE | 2022-11-19 06:52 | ANES.PREANE2 ---
Pre-Anesthetic Assessment Height/Weight: Height 1.83 m Weight 117.934 kg Temp Pulse Resp BP Pulse Ox O2 Del Method 96.7 F L 56 L 18 136/81 97 Room Air 11/19/22 06:26 11/19/22 06:26 11/19/22 06:26 11/19/22 06:26 11/19/22 06:26 11/19/22 06:26 Preop Diagnosis: Dysphagia, GERD Operation Date: 11/19/22 07:30 Proposed Procedures p 49562 EGD with raven, [id number] Colonoscopy Z12.11,K21.9 , R13.10(Not Applicable) - DO rebecca Heller Colonoscopy(Not Applicable) - Andrei Hyman DO Familial anesthetic complications: none Was Beta Timoteo taken within 24 hours: Yes Last intake: Intake Last Liquid Date 11/18/22 Last Liquid Time 22:00 Last Solid Date 11/17/22 Last Solid Time 18:00 Social No alcohol and No tobacco Airway Submandibular: within normal limits Cervical ROM: within normal limits Mallampati: Class II Dentition: full Comments: Comments: jeffers. Pulmonary Sleep Apnea (CPAP compliant) CV/HEM Coronary Artery Disease and Hypertension CABG 2 vessel 03/2021. Cardiac rehab 3x week. 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 None reported Hepatic None reported GI Gastroesophageal Reflux Disease Dysphagia Metabolic Hyperlipidemia [facility] [place] [facility] None reported Neuropsych None reported Anesthetic Plan ASA status: 3 Anesthesia: MAC Medications/Allergies Home Medications Medication Instructions Recorded Confirmed Last Taken Type aspirin 81 mg tablet,delayed 81 mg PO DAILY #90 tabs 02/21/21 11/19/22 11/18/22 Rx release (Adult Low Dose Aspirin) multivitamin 1 tab PO DAILY 02/21/21 11/19/22 11/18/22 History fluocinonide 0.05 % topical cream 1 applic topical BID PRN itching 07/17/22 11/19/22 Unknown Rx #30 grams metoprolol tartrate 25 mg tablet 25 mg PO BID #180 tabs 07/17/22 11/19/22 11/19/22 Rx atorvastatin 80 mg tablet 80 mg PO DAILY 07/31/22 11/19/22 11/18/22 History clopidogrel 75 mg tablet 75 mg PO DAILY 07/31/22 11/19/22 11/17/22 06:00 History pantoprazole 40 mg tablet,delayed 40 mg PO BID #180 tabs 09/08/22 11/19/22 11/19/22 Rx release (Protonix) tamsulosin 0.4 mg capsule 0.4 mg PO BID 90 days #180 caps 10/03/22 11/19/22 11/19/22 Rx Allergies Allergy/AdvReac Type Severity Reaction Status Date / Time No Known Allergies Allergy Verified 11/19/22 06:24 Current Medications Generic Name Dose Route Start Last Admin Trade Name Lynnette PRN Reason Stop Dose Admin Sodium Chloride 1,000 mls @ 30 mls/hr 11/19/22 06:15 11/19/22 06:33 Sodium Chloride 0.9% IV 11/20/22 06:14 30 mls/hr .Q24H ASH Administration PFSH Anesthesia Medical History BPH (benign prostatic hyperplasia) CAD (coronary artery disease) Dyslipidemia GERD (gastroesophageal reflux disease) Hypertension PUSHPA (obstructive sleep apnea) Surgical History H/O esophagogastroduodenoscopy (10/04/21) Grade D esopahgitis with schatzki ring, hiatal hernia History of ankle surgery History of appendectomy History of detached retina repair History of tympanostomy tube placement Status post aorto-coronary artery bypass graft Status post colonoscopy Family History Mother Stroke Brother Stroke Myocardial infarction Family/Other Hypertension Father Myocardial infarction Social History Smoking and tobacco status: former smoker Quit status (tobacco): has quit using tobacco Alcohol intake: never Data Anesthesia Cardiac Studies: Echocardiogram 03/22/21 Sestamibi Stress Test (Cardiology) 12/24/20
--- NOTE | 2022-11-19 07:41 | PM.HP ---
Providers/Chief Complaint Primary Care Provider: Jane Reed DO Chief Complaint: Z12.11, K21.9, R13.10 History of Present Illness Bhargav Holm is a 62 year old male who is here for an EGD with possible balloon dilation and colonoscopy Medications/Allergies Home Medications Medication Instructions Recorded Confirmed Last Taken Type aspirin 81 mg tablet,delayed 81 mg PO DAILY #90 tabs 02/21/21 11/19/22 11/18/22 Rx release (Adult Low Dose Aspirin) multivitamin 1 tab PO DAILY 02/21/21 11/19/22 11/18/22 History fluocinonide 0.05 % topical cream 1 applic topical BID PRN itching 07/17/22 11/19/22 Unknown Rx #30 grams metoprolol tartrate 25 mg tablet 25 mg PO BID #180 tabs 07/17/22 11/19/22 11/19/22 Rx atorvastatin 80 mg tablet 80 mg PO DAILY 07/31/22 11/19/22 11/18/22 History clopidogrel 75 mg tablet 75 mg PO DAILY 07/31/22 11/19/22 11/17/22 06:00 History pantoprazole 40 mg tablet,delayed 40 mg PO BID #180 tabs 09/08/22 11/19/22 11/19/22 Rx release (Protonix) tamsulosin 0.4 mg capsule 0.4 mg PO BID 90 days #180 caps 10/03/22 11/19/22 11/19/22 Rx Allergies Allergy/AdvReac Type Severity Reaction Status Date / Time No Known Allergies Allergy Verified 11/19/22 06:24 PFSH Acute PFSH: Medical History BPH (benign prostatic hyperplasia) CAD (coronary artery disease) Dyslipidemia GERD (gastroesophageal reflux disease) Hypertension PUSHPA (obstructive sleep apnea) Surgical History H/O esophagogastroduodenoscopy (10/04/21) Grade D esopahgitis with schatzki ring, hiatal hernia History of ankle surgery History of appendectomy History of detached retina repair History of tympanostomy tube placement Status post aorto-coronary artery bypass graft Status post colonoscopy Family History Mother Stroke Brother Stroke Myocardial infarction Family/Other Hypertension Father Myocardial infarction Social History Smoking and tobacco status: former smoker Quit status (tobacco): has quit using tobacco Alcohol intake: never Vitals/I&O/Wt Last Vital Signs Temp 96.7 F L 11/19/22 06:26 Pulse 56 L 11/19/22 06:26 Resp 18 11/19/22 06:26 BP 136/81 11/19/22 06:26 Pulse Ox 97 11/19/22 06:26 O2 Del Method Room Air 11/19/22 06:26 Weight last 48 hrs Weight 260 lb A&P Assessment and plan (1) Colon cancer screening: (2) GERD (gastroesophageal reflux disease): Qualifiers: Esophagitis presence: with esophagitis Esophagitis bleeding: without hemorrhage Qualified Code(s): K21.00 - Gastro-esophageal reflux disease with esophagitis, without bleeding (3) Dysphagia: Qualifiers: Dysphagia type: other dysphagia Qualified Code(s): R13.19 - Other dysphagia Plan EGD with possible balloon dilation and colonoscopy Attestations Medical Necessity Statement*: Home Coding Level of Care Code Acute Code for Chg Fwd Diagnoses Colon cancer screening Z12.11 GERD (gastroesophageal reflux disease) K21.00 Esophagitis presence: with esophagitis Esophagitis bleeding: without hemorrhage Dysphagia R13.19 Dysphagia type: other dysphagia
[2022-11-19 08:10] VITALS: BP 105/63; PULSE 59; RESP 14; TEMP 36.1; O2SAT 94
[2022-11-19 08:20] VITALS: BP 114/62; PULSE 60; RESP 16; O2SAT 95
--- NOTE | 2022-11-19 15:18 | ANE.PACU2 ---
Inpatient post-anesthesia follow up: Airway intact: Yes Vital signs: Temperature 97 F Pulse Rate 60 Respiratory Rate 16 Blood Pressure 114/62 Pulse Oximetry 95 Oxygen Delivery Me thod Room Air Oxygen Flow Rate Fraction of Inspir ed Oxygen Hydration adequate: Yes Nausea and vomiting: No Pain level: 2 Mental status: Baseline
== END 2022-11-19 08:35 | disposition home or self-care (01) ==
PROVIDERS: PCP Family Medicine; Visit Provider Surgery
PROC: 0DJD8ZZ Inspection of Lower Intestinal Tract, Via Natural or Artificial Opening Endoscopic (ICD-10-PCS; CPT 45378; 2022-11-19 07:30)
DX: Z12.11 Encounter for screening for malignant neoplasm of colon (principal); K21.9 Gastro-esophageal reflux disease without esophagitis; R13.10 Dysphagia, unspecified; K57.30 Diverticulosis of large intestine without perforation or abscess without bleeding; K62.89 Other specified diseases of anus and rectum; K44.9 Diaphragmatic hernia without obstruction or gangrene; G47.30 Sleep apnea, unspecified; I25.10 Atherosclerotic heart disease of native coronary artery without angina pectoris; I10 Essential (primary) hypertension; E78.5 Hyperlipidemia, unspecified; Z79.82 Long term (current) use of aspirin; N40.0 Benign prostatic hyperplasia without lower urinary tract symptoms; G47.33 Obstructive sleep apnea (adult) (pediatric)
CPT/HCPCS: 43239; 45380; 88305; J2370; J2704; J7030

== ENCOUNTER 2022-12-02 09:30 | Outpatient (CLI) | payer BC, SELFPAY ==
--- NOTE | 2022-12-02 09:45 | FL_ITS ---
WS: [id number] Exam: FL barium swallow [id number] Date/Time of Exam: 12/02/2022 10:03 AM Reason For Exam: Dysphasia Fluoroscopy time: 1min [id number] minutes # of spot films: Swallowing function at the level of oropharynx was normal. There was no sign of esophageal stricture or mass. Esophageal motility appears normal. No hiatal hernia or gastroesophageal reflux. FL/FL barium swallow [id number] IMPRESSION: 1. Unremarkable esophagram.
== END 2022-12-02 09:31 | disposition home or self-care (01) ==
LOC: RAD 09:33
PROVIDERS: PCP Family Medicine; Visit Provider Surgery
DX: K44.9 Diaphragmatic hernia without obstruction or gangrene (principal); R13.10 Dysphagia, unspecified
CPT/HCPCS: 74220

== ENCOUNTER → 2023-01-16 08:45 | Outpatient (BNVA) | payer BC, SELFPAY | PROVIDERS: PCP Family Medicine; Visit Provider Family Medicine | DX: I10 Essential (primary) hypertension (principal); R35.1 Nocturia; N40.1 Benign prostatic hyperplasia with lower urinary tract symptoms; E78.5 Hyperlipidemia, unspecified | CPT/HCPCS: 80053; 80061; 82043; 84153; 85025 ==

== ENCOUNTER → 2023-07-17 07:58 | Outpatient (BNVA) | payer BC, SELFPAY | PROVIDERS: PCP Family Medicine; Visit Provider Family Medicine | DX: I10 Essential (primary) hypertension (principal); K21.00 Gastro-esophageal reflux disease with esophagitis, without bleeding; N40.0 Benign prostatic hyperplasia without lower urinary tract symptoms | CPT/HCPCS: 80053 ==

== ENCOUNTER 2023-08-13 11:23 | Outpatient (RCR) | payer BC, SELFPAY | END 2023-09-09 23:59 | disposition home or self-care (01) | LOC: SPT 11:23 | PROVIDERS: PCP Family Medicine; Visit Provider Family Medicine | DX: M25.511 Pain in right shoulder (principal); G89.29 Other chronic pain | CPT/HCPCS: 97110; 97161 ==

== ENCOUNTER 2023-09-10 06:00 | Outpatient (RCR) | payer BC, SELFPAY | END 2023-10-08 23:59 | disposition home or self-care (01) | LOC: SPT 06:00 | PROVIDERS: PCP Family Medicine; Visit Provider Family Medicine | DX: M25.511 Pain in right shoulder (principal); G89.29 Other chronic pain | CPT/HCPCS: 97110 ==

== ENCOUNTER → 2024-01-12 08:00 | Outpatient (BNVA) | payer BC, SELFPAY | PROVIDERS: PCP Family Medicine; Visit Provider Family Medicine | DX: R35.1 Nocturia (principal); I10 Essential (primary) hypertension | CPT/HCPCS: 80053; 80061; 84153; 85025 ==

== ENCOUNTER → 2025-03-21 10:21 | Outpatient (BNVA) | payer BC, SELFPAY | PROVIDERS: PCP Family Medicine; Visit Provider Family Medicine | DX: I25.10 Atherosclerotic heart disease of native coronary artery without angina pectoris (principal); N40.0 Benign prostatic hyperplasia without lower urinary tract symptoms; Z12.5 Encounter for screening for malignant neoplasm of prostate | CPT/HCPCS: 80053; 80061; 84153; 85025 ==